=== PATIENT | male | born 1985 | race Caucasian/White ===

== ENCOUNTER 2020-04-10 00:26 | Emergency (ER) | payer MEDICAID, OTHER ==
[~2020-04-10] VITALS: Ht 188 cm; Wt 108.9 kg
[2020-04-10 01:00] VITALS: BP 139/88
[2020-04-10] MEDS ORDERED: KETOROLAC TROMETH 60MG/2ML VIAL IM ONE (01:30)
[2020-04-10] MEDS ORDERED: cefTRIAXone SOD 1,000 MG VL IM ONE (01:30)
== END 2020-04-10 02:42 | disposition home or self-care (01) ==
LOC: ER 00:26
DX: S41.151A Open bite of right upper arm, initial encounter (principal); W54.0XXA Bitten by dog, initial encounter; Y93.89 Activity, other specified; Y92.89 Other specified places as the place of occurrence of the external cause; Y99.8 Other external cause status
CPT/HCPCS: 96372; 99284; J0696; J1885

== ENCOUNTER 2024-01-20 14:13 | Emergency (ER) | payer MEDICAID, OTHER ==
[~2024-01-20] VITALS: Ht 188 cm; Wt 112.7 kg
[2024-01-20 15:30] VITALS: BP 110/66; PULSE 105; RESP 17; TEMP 98.9; O2SAT 95
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
[2024-01-20] MEDS ORDERED: IBUP1TAB5 PO (16:39)
[2024-01-20] MEDS ORDERED: AUG875T PO (16:39)
[2024-01-21] MEDS ORDERED: CEPH500C PO (12:14)
== END 2024-01-20 16:40 | disposition home or self-care (01) ==
LOC: MERGE 14:13 → ER 14:13
DX: S80.11XA Contusion of right lower leg, initial encounter (principal); S60.221A Contusion of right hand, initial encounter; L03.113 Cellulitis of right upper limb; Z88.1 Allergy status to other antibiotic agents; Z88.2 Allergy status to sulfonamides; Z88.8 Allergy status to other drugs, medicaments and biological substances; V89.2XXA Person injured in unspecified motor-vehicle accident, traffic, initial encounter; Y93.89 Activity, other specified; Y92.89 Other specified places as the place of occurrence of the external cause; Y99.8 Other external cause status
CPT/HCPCS: 73130; 73590